=== PATIENT | female | born 1985 | race African-American/Black ===

== ENCOUNTER 2018-11-28 08:20 | Emergency (ER) | payer MEDICAID ==
[~2018-11-28] VITALS: Ht 162.6 cm; Wt 61.2 kg
[~2018-11-28 08:20] MED LIST: KEFLEX500 MG ORAL; NORCO 10/3251 EA ORAL; ZOFRAN ODT4 MG ORAL
[2018-11-28 08:57] VITALS: BP 116/75
--- NOTE | 2018-11-28 08:57 | NUR ---
ED Nurse Note: Pt walked in to ER c/o Rt eye pain 7/10 and swelling and redness. vision acuity was Rt eye 20/100 and Lt eye 20/50. no drainage noted from Rt eye. pt aao x 4 and skin clean and intact.
--- NOTE | 2018-11-28 09:59 | Emergency Room Report ---
History of Present Illness General Chief Complaint: Eye Problems Source: Patient Present Illness HPI This patient states that the lower lid of her right eye has been swollen for the past week. She states that the symptoms have persisted and are painful. She denies blurry vision or eye pain. She has been using cold compresses. She is also taken Benadryl. She denies fever or chills. She denies headache or neck pain. She denies recent illness. She has no other complaints. Allergies: Coded Allergies: [place] (Unverified Allergy, Severe, 01/14/15) Patient History Past Medical History: see triage record, migraines, other - Chronic pain Social History: Denies: smoking, alcohol use, drug use Last Menstrual Period: on period Reviewed Nursing Documentation: PMH: Agreed; PSxH: Agreed Nursing Documentation-PM Past Medical History: No Stated History Hx Neurological Problems: Yes - CHRONIC BACK PAIN, MIGRANES Review of Systems All Other Systems: negative except mentioned in HPI Physical Exam Vital Signs Date Time Temp Pulse Resp B/P (MAP) Pulse Ox O2 Delivery O2 Flow Rate FiO2 11/28/18 08:43 98.1 84 16 116/75 99 Room Air Sp02 EP Interpretation: reviewed, normal General Appearance: no apparent distress, alert, GCS 15, non-toxic Head: normocephalic, atraumatic Eyes: right eye lid inflammation - Clear slightly erythematous lower lid with swelling closer to the medial canthus; bilateral eye PERRL, bilateral eye EOMI ENT: hearing grossly normal, normal pharynx, no angioedema, normal voice Neck: normal inspection Respiratory: no respiratory distress, no retraction, no accessory muscle use, speaking full sentences Rectal: deferred Musculoskeletal: gait/station normal, normal range of motion Neurologic: alert, oriented x3, responsive, motor strength/tone normal, sensory intact, speech normal Psychiatric: judgement/insight normal, memory normal, mood/affect normal, no suicidal/homicidal ideation Skin: no rash, warm/dry, well hydrated, other - See above in ENT exam Medical Decision Making Diagnostic Impression: Primary Impression: Blocked tear duct ER Course She has findings on exam consistent with a blocked tear duct. This also could be an early stye. There is some mild and slight erythema. Is not an obvious periorbital cellulitis. As a precaution, I am going to go ahead and give a course of antibiotics. There is no conjunctivitis or eye involvement. I will give the patient Ilotycin to soothe the conjunctiva. The patient is instructed to follow-up closely with her primary care physician and an channeler. The patient given close return precautions and follow-up instructions. Last Vital Signs Date Time Temp Pulse Resp B/P (MAP) Pulse Ox O2 Delivery O2 Flow Rate FiO2 11/28/18 08:57 98.1 80 16 116/75 99 Room Air Status: improved Disposition: HOME, SELF-CARE Condition: Improved Referrals: NON PHYSICIAN (PCP) Mimi Payne DO Nov 28, 2018 09:59
[2018-11-28] MEDS ORDERED: AUGMENTIN 875-1 EAC1 ORAL (10:00)
[2018-11-28] MEDS ORDERED: IBUPROFEN800 MG ORAL (10:00)
[2018-11-28] MEDS ORDERED: ERYTHROMYCIN3.5 GM RIGHT EYE (10:00)
[2018-11-28 10:06] VITALS: BP 130/78
--- NOTE | 2018-11-28 10:08 | NUR ---
ER DISCHARGE NOTE: Patient is cleared to be discharged per ERMD, pt is aox4, on room air, with stable vital signs. pt was given dc and prescription instructions, pt was able to verbalize understanding, pt id band removed. pt is able to ambulate with steady gait. pt took all belongings.
== END 2018-11-28 10:08 | disposition home or self-care (01) ==
LOC: EMR 08:58
DX: H57.89 Other specified disorders of eye and adnexa (principal)
CPT/HCPCS: 99282